=== PATIENT | male | born 1970 | race African-American/Black ===

== ENCOUNTER 2021-08-24 15:20 | Emergency (ER) | payer BC ==
[~2021-08-24] VITALS: Ht 185.4 cm; Wt 102.1 kg
[2021-08-24 15:35] VITALS: BP_SYST 158
[2021-08-24] MEDS ORDERED: DIPH-TET-PERTUS Vaccine 0.5 ML VIAL (ADACEL) I.M. ONE (16:30)
[2021-08-24 17:04] VITALS: BP_SYST 145
== END 2021-08-24 17:06 | disposition home or self-care (01) ==
LOC: SED 15:20
DX: S01.81XA Laceration without foreign body of other part of head, initial encounter (principal); I10 Essential (primary) hypertension; W01.198A Fall on same level from slipping, tripping and stumbling with subsequent striking against other object, initial encounter; Y93.89 Activity, other specified; Y92.89 Other specified places as the place of occurrence of the external cause; Y99.8 Other external cause status
CPT/HCPCS: 90715; 99283